=== PATIENT | male | born 1950 | race Caucasian/White ===

== ENCOUNTER 2017-02-08 14:49 | Emergency (ER) | payer BC ==
[2017-02-08 15:19] VITALS: BP 176/97
--- NOTE | 2017-02-08 16:01 | UC ---
Lower Extremity/Ankle HPI - HPI Summary HPI Summary: L MTP joint pain and swelling starting 2 days ago. Has hx of gout on R foot x 1 , this feels very similar. Is feeling better today after taking indocin that he uses for his hip. Denies fever or injury. - History of Current Complaint Chief Complaint: UCLowerExtremity Stated Complaint: TOE PAIN Time Seen by Provider: 02/08/17 15:35 Hx Obtained From: Patient Onset/Duration: Gradual Onset, Lasting Days Severity Initially: Mild Severity Currently: Moderate Aggravating Factor(s): Standing, Ambulation Alleviating Factor(s): Rest Able to Bear Weight: Yes - Risk Factors Gout Risk Factors: Age Over 40, Male, Hypertension, Obesity - Allergies/Home Medications Allergies/Adverse Reactions: Allergies Allergy/AdvReac Type Severity Reaction Status Date / Time Sulfa Antibiotics Allergy Intermediate Rash Verified 02/08/17 15:19 PMH/Surg Hx/FS Hx/Imm Hx - Additional Past Medical History Additional PMH: gout Endocrine History Of: Denies: Diabetes, Thyroid Disease Cardiovascular History Of: Reports: Hypertension Respiratory History Of: Denies: COPD, Asthma Psychological History Of: Reports: Anxiety - HAS PRN MEDS AVAILABLE, Depression - Surgical History Surgical History: None Surgery Procedure, Year, and Place: 1984 VASECTOMY [facility], Right total hip replacement in Jul 2016 - Family History Known Family History: Positive: Hypertension - Social History Alcohol Use: Daily Alcohol Amount: 2 DRINKS/DAY Substance Use Type: None Smoking Status (MU): Never Smoked Tobacco Have You Smoked in the Last Year: No - Immunization History Most Recent Influenza Vaccination: FALL 2015 Most Recent Tetanus Shot: UNKNOWN Most Recent Pneumonia Vaccination: NEVER Review of Systems Constitutional: Negative Skin: Negative Eyes: Negative ENT: Negative Respiratory: Negative Cardiovascular: Negative Gastrointestinal: Negative Genitourinary: Negative Motor: Negative Neurovascular: Negative Musculoskeletal: Arthralgia, Decreased ROM Neurological: Negative Psychological: Negative All Other Systems Reviewed And Are Negative: Yes Physical Exam Triage Information Reviewed: Yes Appearance: Well-Appearing, No Pain Distress, Well-Nourished Vital Signs: Initial Vital Signs Temp 97.2 F 02/08/17 15:15 Pulse 85 02/08/17 15:15 Resp 16 02/08/17 15:15 BP 176/97 02/08/17 15:15 Pulse Ox 98 02/08/17 15:15 Vital Signs Reviewed: Yes Eye Exam: Normal Eyes: Positive: Conjunctiva Clear ENT Exam: Normal ENT: Positive: Normal ENT inspection, Hearing grossly normal, Pharynx normal, TMs normal Dental Exam: Normal Neck exam: Normal Neck: Positive: Supple, Nontender, No Lymphadenopathy Respiratory Exam: Normal Respiratory: Positive: Chest non-tender, Lungs clear, Normal breath sounds, No respiratory distress, No accessory muscle use Cardiovascular Exam: Normal Cardiovascular: Positive: RRR, No Murmur Musculoskeletal: Positive: ROM Limited @ - L MTP joint swollen red, slightly tender Neurological Exam: Normal Neurological: Positive: Alert Psychological Exam: Normal Skin Exam: Normal Lower Extremity Course/Dx - Differential Dx/Diagnosis Provider Diagnoses: L great toe MTP gouty arthritis Discharge - Discharge Plan Condition: Stable Disposition: HOME Prescriptions: Indomethacin CAP* [Indocin CAP*] 25 - 50 mg PO TID #30 cap predniSONE TAB* [Deltasone TAB*] 40 mg PO DAILY #6 tab Patient Education Materials: Gout (ED) Referrals: Alpesh Rudolph MD [Primary Care Provider] - Additional Instructions: See your primary care provider if you have recurrent or worsening symptoms.
== END 2017-02-08 16:04 | disposition home or self-care (01) ==
LOC: UCEAST 14:49
DX: M10.072 Idiopathic gout, left ankle and foot (principal); I10 Essential (primary) hypertension; F41.9 Anxiety disorder, unspecified; Z88.1 Allergy status to other antibiotic agents; Z96.641 Presence of right artificial hip joint
CPT/HCPCS: 99212; G0463

== ENCOUNTER 2017-10-18 06:52 | Inpatient (IN) | payer BC ==
--- NOTE | 2017-10-05 23:08 | HP ---
PREOPERATIVE HISTORY AND PHYSICAL: DATE OF ADMISSION/SURGERY: 10/18/17 DATE OF OFFICE VISIT: 10/05/17 ATTENDING SURGEON: Izabel Akers MD * (DICTATED BY THIERRY CARTER) PROCEDURE: Left total hip replacement. CHIEF COMPLAINT: Left hip pain. HISTORY OF PRESENT ILLNESS: Mr. Powell is a 66-year-old male who presents to the clinic for left hip pain due to severe end-stage osteoarthritis. He has failed conservative measures and has therefore agreed to undergo a left total hip replacement with Dr. Akers on 10/18/17. PAST MEDICAL HISTORY: Hypertension, GERD, depression, osteoarthritis, anxiety, history of urinary strictures. PAST SURGICAL HISTORY: Vasectomy, urinary stricture ballooning, and right total hip replacement. Denies prior complications with anesthesia. MEDICATIONS: 1. Indomethacin 25 mg once by mouth 3 times a day with food. 2. Percocet 10/325 one by mouth every 12 hours as needed for pain. 3. Compression stockings 20/30 wear every day. 4. Lisinopril 40 mg 1 by mouth twice a day. 5. Wellbutrin 100 mg take 1 by mouth every morning for 2 weeks and then take 1 in the morning and 1 at noon. 6. Xanax 0.5 mg 1 to 2 as needed for sleep. 7. Prevacid 15 mg 1 by mouth every day. 8. Aspirin 325 mg 1 by mouth twice a day. 9. Lansoprazole 30 mg 1 by mouth daily. ALLERGIES: No known drug allergies. FAMILY HISTORY: Positive for rheumatoid arthritis on the paternal side and paternal and maternal hypertension. SOCIAL HISTORY: He lives with his . He is a police patrol officer. He reports occasional alcohol consumption. He denies smoking or illegal drug use. REVIEW OF SYSTEMS: A 14-point review of systems was reviewed with the patient. Positive for current complaint. Otherwise, negative. Denies fever, chills, night sweats, chest pain, or shortness of breath. Denies history of bleeding disorders. Denies history of DVT or PE. PHYSICAL EXAMINATION GENERAL: Well-developed, well-nourished 66-year-old male, in no acute distress. VITAL SIGNS: Height 74, weight 245, blood pressure 142/84, respiratory rate 17 , temperature 98.1, BMI of 31.5. HEENT: Normocephalic, atraumatic. PERRLA. Throat: Clear. NECK: Supple. PULMONARY: Lungs are clear to auscultation bilaterally. No wheezing, rhonchi, or rales. CARDIO: Regular rate and rhythm. S1, S2. No murmurs, gallops, or rubs. No edema. ABDOMEN: Positive bowel sounds, soft, nontender. NEURO: Alert and oriented x3. Cranial nerves grossly intact. Sensation is intact to light touch. MUSCULOSKELETAL: Left lower extremity, skin is intact. No abrasions or open wounds. Hip flexion to 90 degrees with groin pain, 0 degrees internal rotation , 10 degrees external rotation with groin pain. +5/5 strength of ankle dorsiflexion and plantar flexion. +2 PT pulses. Sensation intact to light touch distally. DIAGNOSTIC STUDIES: Multi-view x-rays of the left hip revealed end-stage osteoarthritis with [id number] contact superiorly and osteophyte formation and subchondral sclerosis. IMPRESSION: Left hip end-stage osteoarthritis. PLAN: The patient is scheduled to undergo a left total hip replacement with Dr. Akers on 10/18/17. He will return to the office in 10 to 14 days postop for followup and suture removal. A script for Percocet was sent for postop pain management, Coumadin was sent for DVT prophylaxis. The patient was instructed not to take the Coumadin before surgery. He was also instructed to stop his aspirin 1 week before surgery and Colace was sent to use as needed for constipation. THIERRY CARTER [id number]/[facility] #: [id number] [facility] MEDICAL CENTERMatt
[~2017-10-18 06:52] MED LIST: Buffered Lidocaine 0.9% SYRIN* 5 ML/SYR SYRINGE INTRADERM ONE
[2017-10-18] MEDS ORDERED: ceFAZolin 2 GM PREMIX (*) 2 GM/50 ML BAG IVPB ONE (06:57)
[2017-10-18] MEDS ORDERED: Buffered Lidocaine 0.9% SYRIN* 5 ML/SYR SYRINGE ONE (06:57)
[2017-10-18] MEDS ORDERED: fentaNYL* 50 MCG/ML 2 ML VIAL (100 MCG VIAL) ONE (08:02)
[2017-10-18] MEDS ORDERED: Midazolam* 1 MG/ML 2 ML VIAL (2 MG) ONE (08:03)
[2017-10-18] MEDS ORDERED: Morphine PF AMP (0.5MG/ML)* 5 MG/10 ML AMP ONE (08:03)
[2017-10-18] MEDS ORDERED: Propofol* 10 MG/ML 20 ML BTL IV PUSH ONE ×2 (08:31→09:52)
[2017-10-18] MEDS ORDERED: Bupivacaine 0.5% SDV PF* 10-30ML VIAL ONE (08:31)
[2017-10-18] MEDS ORDERED: EPHEDrine (Pressors)* 50 MG/ML VIAL ONE (09:26)
[2017-10-18] MEDS ORDERED: Phenylephrine INJ* 10 MG/ML 1 ML VIAL (10 MG) ONE (09:57)
[2017-10-18] MEDS ORDERED: Polyethylene Glycol 3350* 17 GM PACKET PO PRN (09:59)
[2017-10-18] MEDS ORDERED: Magnesium Hydroxide LIQ* 30 ML UDC PO PRN (09:59)
[2017-10-18] MEDS ORDERED: Cyclobenzaprine TAB* 10 MG PO PRN (09:59)
[2017-10-18] MEDS ORDERED: Bisacodyl SUPP* 10 MG SUPP PR PRN (09:59)
[2017-10-18] MEDS ORDERED: Omeprazole CAP* 20 MG PO PRN (10:03)
[2017-10-18] MEDS ORDERED: oxyCODONE/Acetamin 5/325 MG* TAB PO PRN ×2 (10:51)
[2017-10-18] MEDS ORDERED: Ibuprofen TAB* 600 MG PO PRN (10:51)
[2017-10-18] MEDS ORDERED: diPHENhydraMINE IV* 50 MG/ML 1 ml VIAL (BENADRYL) IV PRN ×2 (10:51)
[2017-10-18] MEDS ORDERED: Nalbuphine* 20 MG/ML 1 ML VIAL IV PRN ×2 (10:51)
[2017-10-18] MEDS ORDERED: HYDROmorphone INJ* 1 MG/ML CARPUJECT SYRINGE IV PRN (10:51)
[2017-10-18] MEDS ORDERED: Ondansetron INJ* 2 MG/ML VIAL IV PRN (10:51)
[2017-10-18] MEDS ORDERED: Metoclopramide IV* 5 MG/ML 2 ML VIAL IV PRN (10:51)
[2017-10-18] MEDS ORDERED: PROCHLORPERAZINE INJ 5 MG/ML 2 ML VIAL IV PRN (10:51)
[2017-10-18] MEDS ORDERED: Naloxone* 0.4 MG/ML 1 ML VIAL IV PRN ×2 (10:51)
--- NOTE | 2017-10-18 11:47 | RAD ---
HISTORY: Left total hip replacement COMPARISONS: July 25, 2017 VIEWS: 1, intraoperative portable view of the hip during arthroplasty. FINDINGS: A single portable intraoperative view of the hips during arthroplasty demonstrates bilateral hip arthroplasty with a temporary femoral sizing component on the left. IMPRESSION: LIMITED PORTABLE VIEW OF THE PELVIS DURING HIP ARTHROPLASTY
--- NOTE | 2017-10-18 12:13 | RAD ---
Indication: Postop LEFT total hip replacement. Comparison: July 25, 2017 Technique: Low AP pelvis and AP and crosstable lateral views LEFT hip. Report: LEFT total hip prosthesis is normally located. Negative for periprosthetic fracture. Overlying soft tissue edema and subcutaneous emphysema. Unremarkable appearance of the RIGHT total hip prosthesis in the AP projection. Urinary catheter in place. IMPRESSION: Unremarkable immediate postop exam following LEFT total hip replacement.
[2017-10-18] MEDS ORDERED: Meperidine Carpuject* 75 MG/ML CARPUJECT SYRINGE IV ONE (14:00)
[2017-10-18] MEDS ORDERED: Warfarin TAB(*) 6 MG PO ONE (17:00)
[2017-10-18] MEDS: ceFAZolin 1 GM VIAL(*) 1 GM in NS 0.9% 50 ML* 50 ML IVPB SCH (17:02)
[2017-10-18] MEDS: Acetaminophen TAB* 325 MG PO PRN (17:21)
--- NOTE | 2017-10-18 19:14 | CONSULT ---
Subjective Date of Service: 10/18/17 Interval History: POD #0. No complaints, pain is controlled. Family History: Unchanged from Admission Social History: Unchanged from Admission Past Medical History: Unchanged from Admission Review of Systems - Measurements Intake and Output: Intake and Output Last 24 Hours 10/16/17 10/17/17 10/18/17 10/19/17 06:59 06:59 06:59 06:59 Intake Total 3040 Output Total 855 Balance 2185 Weight 109.044 kg Intake: IV Fluids 2600 KCL in Sterile Water 0 LR 2600 Oral 440 Output: Ellis 525 Residual 30 Coude 16 Fr 30 Estimated Blood Loss 300 Other: # Bowel Movements 0 - Review of Systems Constitutional Symptoms: Positive: Weight Gain, Weight Loss, Weakness, Fatigue, Fever, Night Sweats, Unexplained Falls, Other Pulmonary: Positive: Normal, Cough, Sputum, Hemoptysis, Wheezing, Respiratory Distress, Shortness of Breath, COPD, Asthma, Exercise Intolerance, Home Oxygen, Other Cardiology: Positive: Normal, Chest Pain, Shortness of Breath, Palpitations, Swelling of Ankles, Peripheral Vascular Dis, Edema, Faintness, Syncope, Claudication, Proximal NocturnalDyspnea, Orthopnoea, Other Gastroenterology: Positive: Normal, Abdominal Pain, Nausea, Vomiting, Anorexia, Indigestion, Difficulty Swallowing, Heartburn, Constipation, Diarrhea, Blood in Stools, Change in Bowel Habits, Haematemesis, Melena, Other Objective Active Medications: Acetaminophen (Tylenol Tab*) 650 mg PO Q4H PRN PRN Reason: PAIN OR TEMPERATURE Last Admin: 10/18/17 17:21 Dose: 650 mg Bisacodyl (Dulcolax Supp*) 10 mg [place] DAILY PRN PRN Reason: constipation Bupropion HCl (Bupropion Xl*) 300 mg PO QAM [facility] Cyclobenzaprine HCl (Flexeril Tab*) 10 mg PO TID PRN PRN Reason: SPASMS Diphenhydramine HCl (Benadryl Iv*) 12.5 mg IV Q6H PRN PRN Reason: PRURITIS Diphenhydramine HCl (Benadryl Iv*) 12.5 mg IV Q6H PRN PRN Reason: PRURITIS Stop: 10/19/17 02:51 Docusate Sodium (Colace Cap*) 100 mg PO BID [facility] Enoxaparin Sodium (Lovenox(*)) 40 mg SUBCUT Q24H [facility] Cefazolin Sodium 1 gm/ Sodium (Chloride) 50 mls @ 200 mls/hr IVPB Q8H [facility] Stop: 10/19/17 09:14 Last Admin: 10/18/17 17:02 Dose: 200 mls/hr Lactated Ringer's (Lactated Ringers 1000 Ml Bag*) 1,000 mls @ 100 mls/hr IV PER RATE [facility] Lactulose (Lactulose*) 30 ml PO Q6H PRN PRN Reason: constipation Lisinopril (Prinivil Tab*) 20 mg PO BID [facility] Magnesium Hydroxide (Milk Of Magnesia Liq*) 30 ml PO BID [facility] Magnesium Hydroxide (Milk Of Magnesia Liq*) 30 ml PO Q6H PRN PRN Reason: constipation Metoclopramide HCl (Reglan Iv*) 10 mg IV Q6H PRN PRN Reason: Nausea/Vomiting Stop: 10/19/17 02:51 Metoprolol Succinate (Toprol Xl Tab*) 12.5 mg PO DAILY [facility] Morphine Sulfate (Morphine Inj (Syringe)*) 2 mg IV Q2H PRN PRN Reason: PAIN Nalbuphine HCl (Nubain*) 5 mg IV Q6H PRN PRN Reason: Nausea/Vomiting Stop: 10/19/17 02:51 Naloxone HCl (Narcan*) 0.08 mg IV Q2M PRN PRN Reason: severe induced resp depression Stop: 10/19/17 10:50 Naloxone HCl (Narcan*) 0.08 mg IV Q2M PRN PRN Reason: severe induced resp depression Stop: 10/19/17 02:51 Omeprazole (Prilosec Cap*) 20 mg PO DAILY PRN; Protocol PRN Reason: INDIGESTION Ondansetron HCl (Zofran Inj*) 4 mg IV Q6H PRN PRN Reason: nausea Ondansetron HCl (Zofran Tab*) 4 mg PO Q6H PRN PRN Reason: NAUSEA Ondansetron HCl (Zofran Inj*) 4 mg IV Q6H PRN PRN Reason: Nausea/Vomiting Stop: 10/19/17 02:51 Oxycodone HCl (Roxycodone Tab*) 10 mg PO Q4H PRN PRN Reason: SEVERE PAIN Oxycodone/Acetaminophen (Percocet 5/325 Tab*) 2 tab PO Q4H PRN PRN Reason: PAIN Oxycodone/Acetaminophen (Percocet 5/325 Tab*) 1 tab PO Q4H PRN PRN Reason: PAIN Oxycodone/Acetaminophen (Percocet 5/325 Tab*) 2 tab PO Q4H PRN PRN Reason: Moderate Pain Stop: 10/19/17 02:51 Polyethylene Glycol/Electrolytes (Miralax*) 17 gm PO DAILY PRN PRN Reason: Constipation Prochlorperazine Edisylate (Compazine Inj*) 5 mg IV Q6H PRN PRN Reason: NAUSEA/VOMITING Stop: 10/19/17 02:51 Vital Signs - 8 hr 10/18/17 10/18/17 10/18/17 11:15 11:30 11:45 Temperature Pulse Rate 63 68 66 Respiratory 12 22 22 Rate Blood Pressure 102/65 102/70 110/75 (mmHg) O2 Sat by Pulse 98 100 100 Oximetry 10/18/17 10/18/17 10/18/17 12:00 12:15 12:31 Temperature 99.5 F Pulse Rate 66 71 68 Respiratory 18 16 18 Rate Blood Pressure 100/79 133/83 137/80 (mmHg) O2 Sat by Pulse 100 100 100 Oximetry 10/18/17 10/18/17 10/18/17 12:46 13:00 13:13 Temperature 100.8 F Pulse Rate 67 71 Respiratory 16 16 18 Rate Blood Pressure 135/80 134/82 (mmHg) O2 Sat by Pulse 99 97 Oximetry 10/18/17 10/18/17 10/18/17 13:15 13:30 13:45 Temperature 100.0 F Pulse Rate 73 71 68 Respiratory 18 16 16 Rate Blood Pressure 131/81 128/84 126/80 (mmHg) O2 Sat by Pulse 97 95 94 Oximetry 10/18/17 10/18/17 10/18/17 13:59 14:51 16:10 Temperature 99.6 F 98.6 F Pulse Rate 71 92 Respiratory 16 18 18 Rate Blood Pressure 129/74 119/76 (mmHg) O2 Sat by Pulse 97 97 Oximetry 10/18/17 10/18/17 10/18/17 16:24 17:20 18:11 Temperature 101.7 F 102.3 F 102.1 F Pulse Rate 94 97 Respiratory 20 21 Rate Blood Pressure 127/76 135/76 (mmHg) O2 Sat by Pulse 95 97 Oximetry Oxygen Devices in Use Now: None Appearance: alert, well appearing Eyes: No Scleral Icterus Ears/Nose/Mouth/Throat: NL Teeth, Lips, Gums Neck: NL Appearance and Movements; NL JVP Respiratory: Symmetrical Chest Expansion and Respiratory Effort Cardiovascular: NL Sounds; No Murmurs; No JVD, RRR Abdominal: NL Sounds; No Tenderness; No Distention, No Hepatosplenomegaly Lymphatic: No Cervical Adenopathy Extremities: No Edema, - - left hip dressed, surrounding edema, no drainage Skin: No Rash or Ulcers Neurological: Alert and Oriented x 3 Assessment/Plan - Billing Plan By Medical Problem: 1. HTN. His bp is well controlled at this time. There is no need to aggressively control his bp inpatient. Assisted, his bp goal is <150 systolic given his age >60 years. His home medications are lisinopril 20mg BID, and metoprolol 12.5mg BID. I will add back the metoprolol, as you can have rebound tachycardia with discontinuation suddenly. 2. POD #0 L hip. Pain is controlled; management per ortho
[2017-10-18] MEDS: Lisinopril TAB* 5 MG PO SCH (21:06)
[2017-10-18] MEDS: Magnesium Hydroxide LIQ* 30 ML UDC PO SCH (21:09)
[2017-10-18] MEDS: Docusate CAP* 100 MG PO SCH (21:09)
[2017-10-19] MEDS: ceFAZolin 1 GM VIAL(*) 1 GM in NS 0.9% 50 ML* 50 ML IVPB SCH ×2 (01:01→08:05)
[2017-10-19] MEDS ORDERED: Ondansetron INJ* 2 MG/ML VIAL IV PRN (02:51)
[2017-10-19] MEDS ORDERED: oxyCODONE TAB* 5 MG TAB PO PRN (02:51)
[2017-10-19] MEDS ORDERED: oxyCODONE/Acetamin 5/325 MG* TAB PO PRN (02:51)
[2017-10-19] MEDS ORDERED: Morphine INJ* 2 MG/ML 1 ML CARPUJECT IV PRN (02:51)
[2017-10-19] MEDS ORDERED: Ondansetron TAB* 4 MG PO PRN (02:51)
[2017-10-19] MEDS ORDERED: diPHENhydraMINE IV* 50 MG/ML 1 ml VIAL (BENADRYL) IV PRN (02:51)
[2017-10-19] MEDS: oxyCODONE/Acetamin 5/325 MG* TAB PO PRN ×3 (03:32→17:17)
[2017-10-19] MEDS: Acetaminophen TAB* 325 MG PO PRN ×2 (04:03→20:06)
[2017-10-19 04:51] LABS: Urine Appearance Cloudy; Urine Blood 3+ (Negative); Urine Color Yellow; Urine Ketones Negative (Negative); Urine Protein 1+(30 mg/dL) (Negative); Urine Specific Gravity 1.018 (1.010-1.030); Urine Urobilinogen Negative (Negative)
[2017-10-19 05:05] LABS: Hematocrit 36 % (42-52); Hemoglobin 12.7 g/dl (14.0-18.0); Mean Platelet Volume 9 um3 (7.4-10.4); Platelet Count 182 10^3/ul (150-450)
[2017-10-19 05:15] LABS: INR 1.11 (0.77-1.02)
[2017-10-19 05:35] LABS: EGFR Non-African American 60.4 (>60)
[2017-10-19] MEDS: Docusate CAP* 100 MG PO SCH ×2 (08:05→20:06)
[2017-10-19] MEDS: Magnesium Hydroxide LIQ* 30 ML UDC PO SCH ×2 (08:05→20:06)
[2017-10-19] MEDS: Metoprolol Succinate XL TAB* 25 MG PO SCH (08:06)
[2017-10-19] MEDS: Lisinopril TAB* 5 MG PO SCH ×2 (08:06→20:06)
--- NOTE | 2017-10-19 08:51 | PN ---
Progress Note - Progress Note Date of Service: 10/19/17 SOAP: Subjective: 66 y/o male s/p L HODA by Dr. Akers 10/18. febrile overnight, vss, afebrile this AM. Feeling well, slight numbness R le. no questions re surgery. Objective: General- Well appearing, NAD AO sitting comfortably MSK- Dressing intact, no drainge noted, + DF/PF = b/l, neg homans. sensation to light touch intact b/l. Vital Signs Temp 97.9 F 10/19/17 07:53 Pulse 75 10/19/17 07:53 Resp 18 10/19/17 08:07 BP 124/73 10/19/17 07:53 Pulse Ox 97 10/19/17 07:53 Intake & Output 10/18/17 10/19/17 10/19/17 18:59 06:59 18:59 Intake Total 3040 910 Output Total 855 725 Balance 2185 185 Weight 109.044 kg Intake: IV Fluids 2600 KCL in Sterile Water 0 LR 2600 Oral 440 910 Output: Izquierdo 525 725 Residual 30 Coude 16 Fr 30 Estimated Blood Loss 300 Other: # Bowel Movements 0 Assessment: Stable 66 y/o male s/p L HODA by Dr. Akers 10/18. Plan: - Febrile overnight, resolved, CXR ordered, f/u UA- neg nitrates, neg leuks f/u cx's - DVT prophylax- lovenox, coumadin 7.5 tonight. - Continue PT/ OT - FInish post-op ABX today - Rad Onc- one dose radiation today at 11 for h/o HO - REmove izquierdo - h/o urinary strictures, follow UO closely Acetaminophen (Tylenol Tab*) 650 mg PO Q4H PRN PRN Reason: PAIN OR TEMPERATURE Last Admin: 10/19/17 04:03 Dose: 650 mg Bisacodyl (Dulcolax Supp*) 10 mg [place] DAILY PRN PRN Reason: constipation Bupropion HCl (Bupropion Xl*) 300 mg PO QAM [facility] Cyclobenzaprine HCl (Flexeril Tab*) 10 mg PO TID PRN PRN Reason: SPASMS Diphenhydramine HCl (Benadryl Iv*) 12.5 mg IV Q6H PRN PRN Reason: PRURITIS Docusate Sodium (Colace Cap*) 100 mg PO BID [facility] Last Admin: 10/19/17 08:05 Dose: 100 mg Enoxaparin Sodium (Lovenox(*)) 40 mg SUBCUT Q24H [facility] Cefazolin Sodium 1 gm/ Sodium (Chloride) 50 mls @ 200 mls/hr IVPB Q8H [facility] Stop: 10/19/17 09:14 Last Admin: 10/19/17 08:05 Dose: 200 mls/hr Lactated Ringer's (Lactated Ringers 1000 Ml Bag*) 1,000 mls @ 100 mls/hr IV PER RATE [facility] Last Admin: 10/18/17 22:41 Dose: 100 mls/hr Lactulose (Lactulose*) 30 ml PO Q6H PRN PRN Reason: constipation Lisinopril (Prinivil Tab*) 20 mg PO BID [facility] Last Admin: 10/19/17 08:06 Dose: 20 mg Magnesium Hydroxide (Milk Of Magnesia Liq*) 30 ml PO BID [facility] Last Admin: 10/19/17 08:05 Dose: 30 ml Magnesium Hydroxide (Milk Of Magnesia Liq*) 30 ml PO Q6H PRN PRN Reason: constipation Metoprolol Succinate (Toprol Xl Tab*) 12.5 mg PO DAILY [facility] Last Admin: 10/19/17 08:06 Dose: 12.5 mg Morphine Sulfate (Morphine Inj (Syringe)*) 2 mg IV Q2H PRN PRN Reason: PAIN Naloxone HCl (Narcan*) 0.08 mg IV Q2M PRN PRN Reason: severe induced resp depression Stop: 10/19/17 10:50 Omeprazole (Prilosec Cap*) 20 mg PO DAILY PRN; Protocol PRN Reason: INDIGESTION Ondansetron HCl (Zofran Inj*) 4 mg IV Q6H PRN PRN Reason: nausea Ondansetron HCl (Zofran Tab*) 4 mg PO Q6H PRN PRN Reason: NAUSEA Oxycodone HCl (Roxycodone Tab*) 10 mg PO Q4H PRN PRN Reason: SEVERE PAIN Oxycodone/Acetaminophen (Percocet 5/325 Tab*) 2 tab PO Q4H PRN PRN Reason: PAIN Last Admin: 10/19/17 08:07 Dose: 2 tab Oxycodone/Acetaminophen (Percocet 5/325 Tab*) 1 tab PO Q4H PRN PRN Reason: PAIN Polyethylene Glycol/Electrolytes (Miralax*) 17 gm PO DAILY PRN PRN Reason: Constipation Warfarin Sodium (Coumadin Tab(*)) 7.5 mg PO ONCE@1700 ONE PRN Reason: Protocol Stop: 10/19/17 17:01
[2017-10-19] MEDS: BuPROPion XL* 300 MG TAB.XL PO SCH (09:37)
--- NOTE | 2017-10-19 11:04 | OP ---
OPERATIVE REPORT: DATE OF OPERATION: 10/18/17 DATE OF : 54 SURGEON: Izabel Akers MD ETCHER ENAMELING: THIERRY Moscoso Mr. Bazzi did help throughout the procedure with preparation of the leg, wound retraction, manipulat ion of the hip, and wound closure. ANESTHESIOLOGIST: Bella Henson MD ANESTHESIA: Spinal. PRE-OP DIAGNOSIS: Severe end-stage degenerative osteoarthritis of the left hip. POST-OP DIAGNOSIS: Severe end-stage degenerative osteoarthritis of the left hip. OPERATIVE PROCEDURE: Left total hip arthroplasty. INDICATIONS: Ms. Powell is a 66-year-old gentleman with years of increasingly severe left hip pain. Radiographs showed [id number] arthritis. He failed conservative treatment with anti-inflammatorie s, pain medication, ambulatory assistive devices, and physical therapy. Due to continued pain and de creased quality of life, he elected to undergo left total hip arthroplasty. Informed consent was obt ained from the patient. He understood the risks of surgery included, but were not limited to, bleedi ng, infection, damage to nearby structures, continued pain, need for further surgery, intraoperative fracture, nerve palsy, hardware failure or loosening, dislocation, leg length discrepancy, stroke, he art attack, blood clot, and . He wished to proceed. COMPLICATIONS: None. ESTIMATED BLOOD LOSS: 350 cc. SPECIMEN: Femoral head and acetabular reaming sent to Pathology. HARDWARE USED: This is uncemented Marilia total hip hardware. For the cup, a 56E Tritanium cluster hole shell, a single 25-mm cancellous bone screw was used. For the polyethylene, a 0-degree Trident X3 polyethylene liner 36E. For the stem, an Accolade TMZF size 3.5 with a 132-degree neck. For the head, a 36 +0 Biolox delta ceramic femoral head. INTRAOPERATIVE FINDINGS: Intraoperatively, the patient was noted to have severe arthritis with compl ete loss of cartilage along the femoral head and acetabulum. DESCRIPTION OF PROCEDURE: Mr. Powell was identified in the preanesthesia unit. His left lower extrem ity was marked as the correct operative side. Informed consent was signed and placed in the chart. The patient was taken to the operating room and placed under spinal anesthesia. A Ellis catheter was placed. The patient was placed in the right lateral decubitus position on the peg board. All bony prominences were well padded. The left lower extremity was prepped and draped in the usual sterile f ashion. Preop time-out was made to correctly identify the patient's side and site. Appropriate melissa operative antibiotics were given within 1 hour of incision. A 12-cm posterior hip incision was made with a 10 blade and carried down to the lateral fascial layer . A new 10 blade was used to make a standard lateral fascial incision in line with the skin incision . A Charnley retractor was placed. The piriformis and conjoint tendons were identified along the po sterolateral femur as I elevated with electrocautery. These were tagged with #5 Ethibonds. Electroc autery was then used to make a standard posterior capsular flap. This was also tagged with #5 Ethibo nds. The hip was carefully dislocated. Lesser troch to center of the femoral head measured 57 mm. The oscillating saw was used to make the appropriate femoral neck cut. The femoral head was removed. The femur was carefully retracted anteriorly. After appropriate placement of retractor, the acetabul um was well visualized. Long-handled knife was used to sharply remove remaining labrum from the acet abular rim. The acetabulum was sequentially reamed up to a size 55-mm reamer. Bleeding subchondral bone bed was obtained. 55 trial had excellent fit. Final implant chosen was a 56 Tritanium cluster hole shell. This was impacted into the acetabulum wi thout difficulty. The cup had excellent fit and stability. There was appropriate anteversion and ab duction angle. A single 25-mm screw was placed in the superoposterior quadrant for extra stability. The insert chosen was a Trident X3 0-degree polyethylene liner 36E. This was impacted into the acet abulum without difficulty. Stability of the liner was checked and rechecked and noted to be stable. Attention was next turned to preparation of the proximal femur. A canal finder was used to enter the proximal femur. The proximal femur was sequentially broached up to a size 3.5. The 3.5 broach had excellent fit. A trial 132 neck with a trial 36, +0 head was placed. Lesser troch to center of the femoral head measured 57 mm. The hip was reduced and taken through a range of motion. The hip was st able in all positions. Leg length and soft tissue tension were deemed to be appropriate. The hip was carefully dislocated. All trials were removed. Final implant chosen was an Accolade TMZF size 3.5 with a 132-degree neck. This was impacted into th e femur without difficulty. A Biolox delta ceramic femoral head 36 +0 was chosen as the final implan t and impacted on to the femoral neck. The hip was reduced and taken through range of motion. The hi p was stable in all positions. The hip was copiously irrigated with sterile saline. Previously tagg ed capsule and tendons were reapproximated to the posterolateral femur through 2 trochanteric drill h oles. The lateral fascial layer was closed using interrupted #1 Vicryls. The rest of the incision w as closed in a layered fashion using 0 and 2- 0 Vicryls. The skin was closed using running 3-0 Monoc ryl suture. Dermabond was placed over this. Sterile Adaptic, 4x4s, and paper tape were used to cove r the incision. The patient's anesthesia was reversed without difficulty. He was taken to the PACU in stable conditi on. Intended weightbearing will be weightbearing as tolerated. Intended DVT prophylaxis will be Coum poala with a Lovenox bridge. [id number]/[facility] #: [id number]
--- NOTE | 2017-10-19 11:29 | RAD ---
INDICATION: Fever evaluate for aspiration. COMPARISON: Comparison is made with a prior chest x-ray study from October 05, 2017. TECHNIQUE: Dual-energy PA and lateral views of the chest were obtained. FINDINGS: The heart is within normal limits in size. Mediastinal and hilar contours appear within normal limits. The lungs are hyperinflated and clear with flattening of the diaphragms suggestive of chronic obstructive pulmonary disease. No pleural effusion is seen. IMPRESSION: FINDINGS SUGGESTIVE OF COPD, NO EVIDENCE FOR ACUTE FINDING.
[2017-10-19] MEDS: Enoxaparin(*) 40 MG/0.4 ML SYR SUBCUT SCH (12:32)
[2017-10-19] MEDS ORDERED: Warfarin TAB(*) 7.5 MG PO ONE (17:00)
[2017-10-20] MEDS: oxyCODONE/Acetamin 5/325 MG* TAB PO PRN ×4 (01:31→21:14)
[2017-10-20 05:44] LABS: Hematocrit 32 % (42-52); Hemoglobin 11.3 g/dl (14.0-18.0); Mean Platelet Volume 9 um3 (7.4-10.4); Platelet Count 140 10^3/ul (150-450)
[2017-10-20 05:58] LABS: INR 1.1 (0.77-1.02)
[2017-10-20] MEDS: Metoprolol Succinate XL TAB* 25 MG PO SCH (08:37)
[2017-10-20] MEDS: Magnesium Hydroxide LIQ* 30 ML UDC PO SCH ×2 (08:38→20:43)
[2017-10-20] MEDS: BuPROPion XL* 300 MG TAB.XL PO SCH (08:38)
[2017-10-20] MEDS: Lisinopril TAB* 5 MG PO SCH ×2 (08:38→21:14)
[2017-10-20] MEDS: Docusate CAP* 100 MG PO SCH ×2 (08:38→21:14)
[2017-10-20] MEDS: NS 0.9% 1000 ML* 2,000 ML IV ONE ×2 (10:08→12:37)
[2017-10-20] MEDS: Levofloxacin TAB* 500 MG PO SCH (11:02)
[2017-10-20] MEDS: Enoxaparin(*) 40 MG/0.4 ML SYR SUBCUT SCH (12:08)
[2017-10-20] MEDS ORDERED: Morphine INJ* 2 MG/ML 1 ML SYRINGE (TWO MG - NEW SYRINGE VERSION) ONE (12:27)
--- NOTE | 2017-10-20 17:41 | PN ---
Subjective Date of Service: 10/20/17 Interval History: . Pt had pre-syncopal episode this AM. Low grade fever o/n UA yesterday was equivocal; could represent UTI --> would explain light headedness & pre-syncopal episode no h/o CHF --> will give 2L NS and start quinolone for urinary coverage patient actually felt fine while supine. Tylenol for any fevers Encourage PO intake. Family History: Unchanged from Admission Social History: Unchanged from Admission Past Medical History: Unchanged from Admission Objective Active Medications: . Acetaminophen (Tylenol Tab*) 650 mg PO Q4H PRN PRN Reason: PAIN OR TEMPERATURE Last Admin: 10/19/17 20:06 Dose: 650 mg Bisacodyl (Dulcolax Supp*) 10 mg [place] DAILY PRN PRN Reason: constipation Bupropion HCl (Bupropion Xl*) 300 mg PO QAM [facility] Last Admin: 10/20/17 08:38 Dose: 300 mg Cyclobenzaprine HCl (Flexeril Tab*) 10 mg PO TID PRN PRN Reason: SPASMS Diphenhydramine HCl (Benadryl Iv*) 12.5 mg IV Q6H PRN PRN Reason: PRURITIS Docusate Sodium (Colace Cap*) 100 mg PO BID [facility] Last Admin: 10/20/17 08:38 Dose: 100 mg Enoxaparin Sodium (Lovenox(*)) 40 mg SUBCUT Q24H [facility] Last Admin: 10/20/17 12:08 Dose: 40 mg Lactated Ringer's (Lactated Ringers 1000 Ml Bag*) 1,000 mls @ 100 mls/hr IV PER RATE [facility] Last Admin: 10/18/17 22:41 Dose: 100 mls/hr Lactulose (Lactulose*) 30 ml PO Q6H PRN PRN Reason: constipation Levofloxacin (Levaquin Tab*) 500 mg PO Q24H [facility] Last Admin: 10/20/17 11:02 Dose: 500 mg Lisinopril (Prinivil Tab*) 20 mg PO BID [facility] Last Admin: 10/20/17 08:38 Dose: 20 mg Magnesium Hydroxide (Milk Of Magnesia Liq*) 30 ml PO BID [facility] Last Admin: 10/20/17 08:38 Dose: Not Given Magnesium Hydroxide (Milk Of Magnesia Liq*) 30 ml PO Q6H PRN PRN Reason: constipation Metoprolol Succinate (Toprol Xl Tab*) 12.5 mg PO DAILY [facility] Last Admin: 10/20/17 08:37 Dose: 12.5 mg Morphine Sulfate (Morphine Inj (Syringe)*) 2 mg IV Q2H PRN PRN Reason: PAIN Last Admin: 10/20/17 12:29 Dose: 2 mg Omeprazole (Prilosec Cap*) 20 mg PO DAILY PRN; Protocol PRN Reason: INDIGESTION Last Admin: 10/20/17 10:12 Dose: 20 mg Ondansetron HCl (Zofran Inj*) 4 mg IV Q6H PRN PRN Reason: nausea Ondansetron HCl (Zofran Tab*) 4 mg PO Q6H PRN PRN Reason: NAUSEA Oxycodone HCl (Roxycodone Tab*) 10 mg PO Q4H PRN PRN Reason: SEVERE PAIN Last Admin: 10/19/17 10:52 Dose: 10 mg Oxycodone/Acetaminophen (Percocet 5/325 Tab*) 2 tab PO Q4H PRN PRN Reason: PAIN Last Admin: 10/20/17 17:11 Dose: 2 tab Oxycodone/Acetaminophen (Percocet 5/325 Tab*) 1 tab PO Q4H PRN PRN Reason: PAIN Last Admin: 10/19/17 12:41 Dose: 1 tab Polyethylene Glycol/Electrolytes (Miralax*) 17 gm PO DAILY PRN PRN Reason: Constipation . Vital Signs - 8 hr 10/20/17 10/20/17 10/20/17 11:59 12:07 12:09 Temperature 99.6 F Pulse Rate 103 88 Respiratory 18 18 Rate Blood Pressure 89/65 114/65 (mmHg) O2 Sat by Pulse 97 Oximetry 10/20/17 10/20/17 10/20/17 12:29 14:49 16:05 Temperature 98.4 F Pulse Rate 88 Respiratory 18 18 20 Rate Blood Pressure 135/66 (mmHg) O2 Sat by Pulse 99 Oximetry Oxygen Devices in Use Now: None Appearance: non-toxic appearing during my exam (~ 8:30 AM) Eyes: No Scleral Icterus Ears/Nose/Mouth/Throat: Clear Oropharnyx Neck: NL Appearance and Movements; NL JVP Respiratory: Symmetrical Chest Expansion and Respiratory Effort Cardiovascular: NL Sounds; No Murmurs; No JVD Abdominal: NL Sounds; No Tenderness; No Distention Lymphatic: No Cervical Adenopathy, No Axillary Adenopathy Extremities: No Edema, - - L hip dressed Skin: No Rash or Ulcers Neurological: Alert and Oriented x 3 Lines/Tubes/Other Access: Clean, Dry and Intact Peripheral IV Nutrition: Taking PO's Result Diagrams: 10/20/17 05:12 10/19/17 04:49 Additional Lab and Data: UA 10/19/2017 Abnl + WBC / + RBC. Microbiology and Other Data: Microbiology 10/19/17 04:49 Aerobic Blood Culture - Preliminary Blood Venous No Growth Day 1 Anaerobic Blood Culture - Preliminary No Growth Day 1 10/19/17 04:39 Aerobic Blood Culture - Preliminary Blood Venous No Growth Day 1 Anaerobic Blood Culture - Preliminary No Growth Day 1 Assess/Plan/Problems-Billing . Plan By Medical Problem: 1. Presyncope / fever / abnl UA --> Urinary tract infection - levoquin 500 mg PO daily x 5 days (end 10/24/2017) - 2 L NS bolus - Follow AM labs - Note (that BP's improved with hydration; encourage further PO intake BP's improved with 2L NS bolus 10/20/17 10/20/17 10/20/17 11:59 12:09 16:05 Blood Pressure 89/65 114/65 135/66 (mmHg) 2. Esesntial HTN as outpatient - bp is well controlled at this time (as above, was actually low; I think because of hydration status) - lisinopril 20mg BID - metoprolol 12.5mg BID 3. s/p L hip surgery - pain mgmt & DVT PPX per ortho
[2017-10-20] MEDS ORDERED: ALPRAZolam TAB* 0.5 MG PO PRN (17:45)
[2017-10-20] MEDS ORDERED: Morphine INJ* 2 MG/ML 1 ML SYRINGE (TWO MG - NEW SYRINGE VERSION) IV PRN (18:08)
[2017-10-21] MEDS: oxyCODONE/Acetamin 5/325 MG* TAB PO PRN ×3 (02:30→12:29)
[2017-10-21 06:08] LABS: ABS Basophils 0 10^3/ul (0-0.2); ABS Eosinophils 0 10^3/ul (0-0.6); ABS Lymphocytes 1.4 10^3/ul (1.0-4.8); ABS Monocytes 0.6 10^3/ul (0-0.8); ABS Nucleated RBC 0 10^3/ul; Eosinophil % 1.1 % (0-6); Hematocrit 30 % (42-52); Hemoglobin 10.5 g/dl (14.0-18.0); Lymphocyte % 34.7 % (25-47); Mean Corpuscular HGB Conc 35 g/dl (31-36); Mean Corpuscular Hemoglobin 33 pg (27-31); Mean Corpuscular Volume 95 fL (80-94); Mean Platelet Volume 8 um3 (7.4-10.4); Nucleated Red Blood Cells % 0.1; Platelet Count 140 10^3/ul (150-450); Red Blood Count 3.18 10^6/ul (4.0-5.4); Red Cell Distribution Width 13 % (10.5-15); White Blood Count 4.1 10^3/ul (3.5-10.8)
[2017-10-21 06:22] LABS: EGFR Non-African American 60.4 (>60)
[2017-10-21 06:25] LABS: INR 1.07 (0.77-1.02)
[2017-10-21] MEDS: Docusate CAP* 100 MG PO SCH (08:24)
[2017-10-21] MEDS: Lisinopril TAB* 5 MG PO SCH (08:24)
[2017-10-21] MEDS: BuPROPion XL* 300 MG TAB.XL PO SCH (08:24)
[2017-10-21] MEDS: Metoprolol Succinate XL TAB* 25 MG PO SCH (08:24)
[2017-10-21] MEDS: Magnesium Hydroxide LIQ* 30 ML UDC PO SCH (08:25)
[2017-10-21] MEDS: Levofloxacin TAB* 500 MG PO SCH (10:28)
--- NOTE | 2017-10-21 10:29 | PN ---
Progress Note - Progress Note Date of Service: 10/21/17 SOAP: Subjective: Pt sitting comfortably in chair. No c/o pain. Vital Signs: Temp Pulse Resp BP Pulse Ox 98.3 F 73 18 137/78 98 10/21/17 07:40 10/21/17 07:40 10/21/17 08:30 10/21/17 07:40 10/21/17 07:40 Laboratory Last Values WBC 4.1 10^3/ul (3.5-10.8) 10/21/17 05:51 RBC 3.18 10^6/ul (4.0-5.4) L 10/21/17 05:51 Hgb 10.5 g/dl (14.0-18.0) L 10/21/17 05:51 Hct 30 % (42-52) L 10/21/17 05:51 MCV 95 fL (80-94) H 10/21/17 05:51 MCH 33 pg (27-31) H 10/21/17 05:51 MCHC 35 g/dl (31-36) 10/21/17 05:51 RDW 13 % (10.5-15) 10/21/17 05:51 Plt Count 140 10^3/ul (150-450) L 10/21/17 05:51 MPV 8 um3 (7.4-10.4) 10/21/17 05:51 Neut % (Auto) 49.2 % (38-83) 10/21/17 05:51 Lymph % (Auto) 34.7 % (25-47) 10/21/17 05:51 [place] % (Auto) 14.6 % (1-9) H 10/21/17 05:51 Eos % (Auto) 1.1 % (0-6) 10/21/17 05:51 Baso % (Auto) 0.4 % (0-2) 10/21/17 05:51 Absolute Neuts (auto) 2.0 10^3/ul (1.5-7.7) 10/21/17 05:51 Absolute Lymphs (auto) 1.4 10^3/ul (1.0-4.8) 10/21/17 05:51 Absolute Monos (auto) 0.6 10^3/ul (0-0.8) 10/21/17 05:51 Absolute Eos (auto) 0 10^3/ul (0-0.6) 10/21/17 05:51 Absolute Basos (auto) 0 10^3/ul (0-0.2) 10/21/17 05:51 Absolute Nucleated RBC 0 10^3/ul 10/21/17 05:51 Nucleated RBC % 0.1 10/21/17 05:51 INR (Anticoag Therapy) 1.07 (0.77-1.02) H 10/21/17 05:51 Sodium 133 mmol/L (133-145) 10/21/17 05:51 Potassium 3.7 mmol/L (3.5-5.0) 10/21/17 05:51 Chloride 103 mmol/L (101-111) 10/21/17 05:51 Carbon Dioxide 26 mmol/L (22-32) 10/21/17 05:51 Anion Gap 4 mmol/L (2-11) 10/21/17 05:51 BUN 16 mg/dL (6-24) 10/21/17 05:51 Creatinine 1.21 mg/dL (0.67-1.17) H 10/21/17 05:51 Est GFR ( Amer) 77.6 (>60) 10/21/17 05:51 Est GFR (Non-Af Amer) 60.4 (>60) 10/21/17 05:51 BUN/Creatinine Ratio 13.2 (8-20) 10/21/17 05:51 Glucose 103 mg/dL (70-100) H 10/21/17 05:51 Calcium 8.0 mg/dL (8.6-10.3) L 10/21/17 05:51 Urine Color Yellow 10/19/17 04:24 Urine Appearance Cloudy 10/19/17 04:24 Urine pH 5.0 (5-9) 10/19/17 04:24 Ur Specific Saxis 1.018 (1.010-1.030) 10/19/17 04:24 Urine Protein 1+(30 mg/dl) (Negative) H 10/19/17 04:24 Urine Ketones Negative (Negative) 10/19/17 04:24 Urine Blood 3+ (Negative) H 10/19/17 04:24 Urine Nitrate Negative (Negative) 10/19/17 04:24 Urine Bilirubin Negative (Negative) 10/19/17 04:24 Urine Urobilinogen Negative (Negative) 10/19/17 04:24 Ur Leukocyte Esterase Negative (Negative) 10/19/17 04:24 Urine WBC (Auto) 2+(11-20/hpf) (Absent) H 10/19/17 04:24 Urine RBC (Auto) 3+(>10/hpf) (Absent) H 10/19/17 04:24 Ur Squamous Epith Cells Present (Absent) H 10/19/17 04:24 Urine Bacteria Absent (Absent) 10/19/17 04:24 Ur Random Creatinine 148.54 mg/dL 10/19/17 08:20 Ur Random Microalbumin 50.5 mg/L 10/19/17 08:20 Ur Creatinine mg/dL 148.54 mg/dL 10/19/17 08:20 Microalb/Creat Ratio 33.9 ug/mg (<31) H 10/19/17 08:20 Urine Glucose Negative (Negative) 10/19/17 04:24 Objective: Calves soft, nontender. Dressing C/D/I Assessment: s/p left HODA POD#3 Plan: OOB PT/OT Pain control DVT prophylaxis - Coumadin 8 mg tonight UTI - Appreciate Hospitalist input. Continue Levaquin DC home today
[2017-10-21] MEDS: Enoxaparin(*) 40 MG/0.4 ML SYR SUBCUT SCH (12:11)
[2017-10-21 12:31] VITALS: BP 116/69
--- NOTE | 2017-10-21 12:42 | PN ---
Subjective Date of Service: 10/21/17 Interval History: . feels MUCH better than yesterday BP's normal discussed treating with levoquin x 5 days total for UTI...pt in agreement. no other active medical problems. Family History: Unchanged from Admission Social History: Unchanged from Admission Past Medical History: Unchanged from Admission Objective Active Medications: . Acetaminophen (Tylenol Tab*) 650 mg PO Q4H PRN PRN Reason: PAIN OR TEMPERATURE Last Admin: 10/19/17 20:06 Dose: 650 mg Alprazolam (Xanax Tab*) 0.5 mg PO BEDTIME PRN PRN Reason: insomnia Bisacodyl (Dulcolax Supp*) 10 mg [place] DAILY PRN PRN Reason: constipation Bupropion HCl (Bupropion Xl*) 300 mg PO QAM [facility] Last Admin: 10/21/17 08:24 Dose: 300 mg Cyclobenzaprine HCl (Flexeril Tab*) 10 mg PO TID PRN PRN Reason: SPASMS Diphenhydramine HCl (Benadryl Iv*) 12.5 mg IV Q6H PRN PRN Reason: PRURITIS Docusate Sodium (Colace Cap*) 100 mg PO BID [facility] Last Admin: 10/21/17 08:24 Dose: 100 mg Enoxaparin Sodium (Lovenox(*)) 40 mg SUBCUT Q24H [facility] Last Admin: 10/21/17 12:11 Dose: 40 mg Lactated Ringer's (Lactated Ringers 1000 Ml Bag*) 1,000 mls @ 100 mls/hr IV PER RATE [facility] Last Admin: 10/18/17 22:41 Dose: 100 mls/hr Lactulose (Lactulose*) 30 ml PO Q6H PRN PRN Reason: constipation Levofloxacin (Levaquin Tab*) 500 mg PO Q24H [facility] Last Admin: 10/21/17 10:28 Dose: 500 mg Lisinopril (Prinivil Tab*) 20 mg PO BID [facility] Last Admin: 10/21/17 08:24 Dose: 20 mg Magnesium Hydroxide (Milk Of Magnesia Liq*) 30 ml PO BID [facility] Last Admin: 10/21/17 08:25 Dose: Not Given Magnesium Hydroxide (Milk Of Magnesia Liq*) 30 ml PO Q6H PRN PRN Reason: constipation Metoprolol Succinate (Toprol Xl Tab*) 12.5 mg PO DAILY [facility] Last Admin: 10/21/17 08:24 Dose: 12.5 mg Morphine Sulfate (Morphine Inj (Syringe)*) 2 mg IV Q2H PRN PRN Reason: PAIN Omeprazole (Prilosec Cap*) 20 mg PO DAILY PRN; Protocol PRN Reason: INDIGESTION Last Admin: 10/20/17 10:12 Dose: 20 mg Ondansetron HCl (Zofran Inj*) 4 mg IV Q6H PRN PRN Reason: nausea Ondansetron HCl (Zofran Tab*) 4 mg PO Q6H PRN PRN Reason: NAUSEA Oxycodone HCl (Roxycodone Tab*) 10 mg PO Q4H PRN PRN Reason: SEVERE PAIN Last Admin: 10/19/17 10:52 Dose: 10 mg Oxycodone/Acetaminophen (Percocet 5/325 Tab*) 2 tab PO Q4H PRN PRN Reason: PAIN Last Admin: 10/21/17 12:29 Dose: 2 tab Oxycodone/Acetaminophen (Percocet 5/325 Tab*) 1 tab PO Q4H PRN PRN Reason: PAIN Last Admin: 10/19/17 12:41 Dose: 1 tab Polyethylene Glycol/Electrolytes (Miralax*) 17 gm PO DAILY PRN PRN Reason: Constipation . Vital Signs - 8 hr 10/21/17 10/21/17 10/21/17 06:33 07:40 08:00 Temperature 98.3 F Pulse Rate 73 Respiratory 16 16 18 Rate Blood Pressure 137/78 (mmHg) O2 Sat by Pulse 98 Oximetry 10/21/17 10/21/17 10/21/17 08:30 11:26 12:22 Temperature 98.9 F Pulse Rate 86 Respiratory 18 16 Rate Blood Pressure 116/69 (mmHg) O2 Sat by Pulse 97 98 Oximetry Oxygen Devices in Use Now: None Appearance: NAD Eyes: No Scleral Icterus Ears/Nose/Mouth/Throat: Clear Oropharnyx Neck: Trachea Midline Respiratory: Symmetrical Chest Expansion and Respiratory Effort, Clear to Auscultation Cardiovascular: NL Sounds; No Murmurs; No JVD, RRR Abdominal: NL Sounds; No Tenderness; No Distention Lymphatic: No Cervical Adenopathy Extremities: No Edema Skin: No Rash or Ulcers Neurological: Alert and Oriented x 3 Lines/Tubes/Other Access: Clean, Dry and Intact Peripheral IV Nutrition: Taking PO's Result Diagrams: 10/21/17 05:51 10/21/17 05:51 Additional Lab and Data: UA 10/19/2017 Abnl + WBC / + RBC. Microbiology and Other Data: Microbiology 10/19/17 04:49 Aerobic Blood Culture - Preliminary Blood Venous No Growth Day 1 Anaerobic Blood Culture - Preliminary No Growth Day 1 10/19/17 04:39 Aerobic Blood Culture - Preliminary Blood Venous No Growth Day 1 Anaerobic Blood Culture - Preliminary No Growth Day 1 Assess/Plan/Problems-Billing . Plan By Medical Problem: 1. Presyncope / fever / abnl UA --> Urinary tract infection - levoquin 500 mg PO daily x 5 days (end 10/24/2017) - 2 L NS bolus 10/20/17 - Follow AM labs ==> all normal on 10/21 - Note (that BP's improved with hydration; encourage further PO intake BP's improved with 2L NS bolus 10/20/17 10/20/17 10/20/17 11:59 12:09 16:05 Blood Pressure 89/65 114/65 135/66 (mmHg) 2. Esesntial HTN as outpatient - bp is well controlled at this time (as above, was actually low; I think because of hydration status) - lisinopril 20 mg BID* - metoprolol 12.5 mg BID * medication reconciliation requested 10/20/17... 3. s/p L hip surgery - pain mgmt & DVT PPX per ortho 4. Disposition: ok to go home at this point. rec completing 5 day course of ABX for uti.
--- NOTE | 2017-10-22 04:45 | DS ---
DISCHARGE SUMMARY: DATE OF ADMISSION: 10/18/17 DATE OF DISCHARGE: 10/21/17 ATTENDING PHYSICIAN: Dr. Izabel Akers.* (DICTATED BY THIERRY QUINTANILLA) PRINCIPAL DIAGNOSIS: Left hip osteoarthritis. SECONDARY DIAGNOSES: 1. Hypertension. 2. Gastroesophageal reflux disease. 3. Depression. 4. Osteoarthritis. 5. Anxiety. 6. Urinary tract infection. PRINCIPAL PROCEDURE: Left total hip arthroplasty. REASON FOR HOSPITALIZATION: Dallin is a 66-year-old male who has had longstanding left hip pain due to severe end-stage osteoarthritis. He had failed conservative measures and had elected to proceed with left total hip replacement with Dr. Akers on 10/18/17. HOSPITAL COURSE: Mr. Powell was admitted to the hospital on 10/18/17 for anticipated left total hip arthroplasty. He underwent surgery without any complications. He was transferred to the recovery room and subsequently, the surgical short-stay unit in a stable condition. The patient participated in physical therapy and occupational therapy throughout the hospital course. His hemoglobin and hematocrit were checked daily. His hemoglobin was 10.5 and hematocrit was 30 on the day of discharge and remained stable. His vital signs have remained stable throughout the hospital course including remaining afebrile. Daily INRs were checked for Coumadin dosing and was 1.07 on the day of discharge. He was discharged on 8 mg of Coumadin. He did develop a urinary tract infection due to urinary strictures and was consulted on by the hospitalist service. He was placed on Levaquin for his UTI and discharged on the Levaquin. DISCHARGE INSTRUCTIONS: Weightbearing as tolerated. Wound care, okay to shower. No bathing, swimming, submerging wound. Use gentle soap, pat dry, cover with gauze, Marc wrap or tape. Call orthopedic office for increased drainage, redness, increased pain or fever. Go to ER for shortness of breath or chest pain. Diet, regular diet. Increase fluids and fiber to prevent constipation. Continue to use stool softeners. Call office if no bowel movement within 48 hours. Continue hip precautions. Do not cross legs or bend greater than 90 degrees or squat. Continue physical therapy and occupational therapy exercises as shown. Visiting home nurse to do wound checks. Visiting home nurse to draw blood work for INR on Sunday and . Coumadin dosing 8 mg. Coumadin on 10/21/17 should be redrawn on 10/22/17. Antibiotics required prior to any dental work. Follow up with Dr. Akers within 10 to 14 days. Call for an appointment. THIERRY QUINTANILLA [id number]/[facility] #: [id number] [place]
== END 2017-10-21 13:15 | disposition home health service (06) | DRG 301 ==
LOC: AA 06:52 → SSU 13:52
PROVIDERS: ADMIT Orthopaedic Surgery Adult Reconstructive Orthopaedic Surgery; ATTEND Orthopaedic Surgery Adult Reconstructive Orthopaedic Surgery
PROC: 0SRB04A Replacement of Left Hip Joint with Ceramic on Polyethylene Synthetic Substitute, Uncemented, Open Approach (ICD-10-PCS; principal; 2017-10-18 08:00)
PROC: DPY87ZZ Contact Radiation of Pelvic Bones (ICD-10-PCS; 2017-10-19)
DX: M16.12 Unilateral primary osteoarthritis, left hip (principal); E66.9 Obesity, unspecified; N39.0 Urinary tract infection, site not specified; I10 Essential (primary) hypertension; K21.9 Gastro-esophageal reflux disease without esophagitis; F32.9 Major depressive disorder, single episode, unspecified; F41.9 Anxiety disorder, unspecified; N35.9 Urethral stricture, unspecified; Z96.641 Presence of right artificial hip joint; R55 Syncope and collapse; G47.33 Obstructive sleep apnea (adult) (pediatric); Z98.52 Vasectomy status; Z82.49 Family history of ischemic heart disease and other diseases of the circulatory system; Z82.61 Family history of arthritis; Z72.89 Other problems related to lifestyle; Z68.33 Body mass index [BMI] 33.0-33.9, adult
CPT/HCPCS: 36415; 71046; 80048; 81003; 81015; 82043; 82570; 85014; 85018; 85025; 85049; 85610; 87040; 88304; 88311; 94760; A9270-GY; C1713; C1776; J0690; J1650; J2175; J2250; J2270; J2405; J2704; J3010